=== PATIENT | male | born 1955 | race African-American/Black ===

== ENCOUNTER 2023-12-05 09:35 | Inpatient (IN) | payer MEDICARE ==
[2023-12-05] VITALS (7 sets, daily range): BP systolic 119–127; BP diastolic 64–73; PULSE 109–117; RESP 18–27; TEMP 98.1; O2SAT 100
[~2023-12-05] VITALS: Ht 172.7 cm; Wt 59.0 kg
[2023-12-05] MEDS: SODIUM CHLORIDE 0.9% 1000ML 1,770 ML IV SCH (10:52)
[2023-12-05] MEDS: ONDANSETRON HCL INJ 2MG/ML 2ML 2 MG/ML VIAL IV STA (10:53)
[2023-12-05] MEDS: Morphine 4mg INJECTION 4 MG/ML INJ IV ONE ×2 (10:53→14:38)
[2023-12-05 10:55] LABS: BASOPHILS # (AUTO) 0.1 (0.0-0.1); BASOPHILS % 0.4 % (0.0-1.0); EOSINOPHILS # (AUTO) 0.9 (0.0-0.4); EOSINOPHILS % 3.4 % (0.0-6.0); HEMATOCRIT 30.7 % (38.2-49.6); HEMOGLOBIN 9.8 g/dL (14.0-18.0); LYMPHOCYTES # (AUTO) 1.1 (1.0-3.2); LYMPHOCYTES % 4.1 % (18.0-39.1); MEAN CORPUSCULAR HGB CONC 31.9 g/dL (31-35); MEAN CORPUSCULAR VOLUME 90.8 fL (81-99); MONOCYTES # (AUTO) 2.1 (0.2-0.8); MONOCYTES % 7.6 % (4.4-11.3); NEUTROPHILS # (AUTO) 23.2 (2.1-6.9); NEUTROPHILS % 83.7 % (38.7-80.0); PLATELET COUNT 210 x10e3/uL (140-360); RED BLOOD COUNT 3.38 x10e6/uL (4.3-5.7); RED CELL DISTRIBUTION WIDTH 16.7 % (11.7-14.4); WHITE BLOOD COUNT 27.72 x10e3/uL (4.8-10.8)
[2023-12-05 11:05] LABS: INR 1.68; PARTIAL THROMBOPLASTIN TIME 29.6 seconds (23.8-35.5)
[2023-12-05 11:12] LABS: ALBUMIN 2.8 g/dL (3.5-5.0); ALBUMIN/GLOBULIN RATIO 0.5 (0.8-2.0); ANION GAP 20.3 mmol/L (8-16); BILIRUBIN,TOTAL 0.4 mg/dL (0.2-1.2); CALCIUM 9.4 mg/dL (8.4-10.2); CREATININE, SERUM 2.53 mg/dL (0.72-1.25); TOTAL PROTEIN 8.1 g/dL (6.5-8.1)
[2023-12-05 11:13] LABS: POTASSIUM 5.3 mmol/L (3.5-5.1)
[2023-12-05] MEDS ORDERED: IOPAMIDOL 370 MG/ML 100 ML INFUS..BTL INJ ONE (11:42)
[2023-12-05] MEDS: Vancomycin IV 1 GM in SODIUM CHLORIDE 0.9% 250ML 250 ML IV SCH (12:10)
[2023-12-05 12:46] LABS: PLATELET ESTIMATE ADEQUATE; PLATELET MORPHOLOGY COMMENT NORMAL
[2023-12-05 12:47] LABS: EOSINOPHILS % (MANUAL) 2 % (0-7); LYMPHOCYTES % (MANUAL) 6 % (19-48); MONOCYTES % (MANUAL) 2 % (3.4-9.0); MYELOCYTES % (MANUAL) 1 % (0-0); NEUTROPHILS % (MANUAL) 89 % (40-74); NUCLEATED RED BLOOD CELLS 0; RBC MORPHOLOGY COMMENT NORMAL
[2023-12-05 13:09] LABS: COLOR,URINE YELLOW (YELLOW)
[2023-12-05 13:10] LABS: BACTERIA,URINE MANY /HPF; BILIRUBIN,URINE NEGATIVE (NEGATIVE); CLARITY,URINE TURBID (CLEAR); EPITHELIAL CELLS,URINE MODERATE /LPF; GLUCOSE, URINE NEGATIVE (NEGATIVE); KETONES,URINE NEGATIVE (NEGATIVE); LEUKOCYTE ESTERASE ,URINE NEGATIVE (NEGATIVE); NITRITE,URINE NEGATIVE (NEGATIVE); PH,URINE 5.5 (5 - 7); PROTEIN,URINE DIPSTICK 2+ (NEGATIVE); RBC,URINE 0-5 /HPF (0-5); URINE UROBILINOGEN 0.2 mg/dL (0.2 - 1)
[2023-12-05] MEDS: ALBUTEROL SULF 0.083% NEB SOLN 3 ML NEB NEB STA (13:46)
[2023-12-05] MEDS: DEXTROSE 50% SYRINGE 50 ML IV STA (14:02)
[2023-12-05] MEDS: SODIUM BICARBONATE 8.4% INJ 50 ML SYR IV STA (14:04)
[2023-12-05] MEDS: INSULIN REGULAR, HUMAN 100 UNIT/1 ML IV ONE (14:13)
[2023-12-05] MEDS: CALCIUM GLUC 1 G/50 ML NACL 100 ML IV ONE (14:13)
[2023-12-05] MEDS ORDERED: SODIUM CHLORIDE FLUSH 10 ML SYR INJ PRN (15:00)
[2023-12-05] MEDS ORDERED: Morphine 4mg INJECTION 4 MG/ML INJ IV PRN (15:00)
[2023-12-05] MEDS ORDERED: ZOLPIDEM TARTRATE 5 MG TAB PO PRN (16:00)
[2023-12-05] MEDS ORDERED: ACETAMINOPHEN 325 MG TAB PO PRN (16:00)
[2023-12-05] MEDS: DEXAMETHASONE SOD PHOS 10 MG/1 ML VIAL IV SCH (16:06)
[2023-12-05] MEDS: SODIUM BICARBONATE 8.4% 50 ML in SODIUM CHLORIDE 0.45% 1,000 ML IV SCH (16:06)
[2023-12-05] MEDS: ENOXAPARIN 30 MG/0.3 ML SYR SC SCH (16:07)
[2023-12-05] MEDS: HEPARIN SOD (PORCINE) 5,000 UNIT/ML VIAL IV ONE (18:07)
[2023-12-05] MEDS: HEPARIN IV SCH (18:24)
[2023-12-05] MEDS: [UNRECOGNIZED DRUG - OTHER] IV SCH (18:24)
[2023-12-05] MEDS: DEXTROSE 5% IV SCH (18:24)
[2023-12-05] MEDS ORDERED: Morphine 2mg Syringe 2 MG/ML SYR IV PRN (19:00)
[2023-12-05] MEDS: Morphine 2mg Syringe 2 MG/ML SYR IV PRN (21:29)
[2023-12-06] VITALS (26 sets, daily range): BP systolic 115–140; BP diastolic 67–77; PULSE 95–111; RESP 14–22; TEMP 97.6–98.2; O2SAT 99–100
[2023-12-06] MEDS ORDERED: SODIUM CHLORIDE 0.45% 1,000 ML ONE (03:35)
[2023-12-06 07:47] LABS: ALBUMIN/GLOBULIN RATIO 0.5 (0.8-2.0); ANION GAP 15.2 mmol/L (8-16); BILIRUBIN,TOTAL 0.3 mg/dL (0.2-1.2); CREATININE, SERUM 1.97 mg/dL (0.72-1.25); TOTAL PROTEIN 6.1 g/dL (6.5-8.1)
[2023-12-06 07:49] LABS: POTASSIUM 5.2 mmol/L (3.5-5.1)
[2023-12-06 07:57] LABS: BASOPHILS % 0.1 % (0.0-1.0); EOSINOPHILS % 0.2 % (0.0-6.0); HEMOGLOBIN 7.4 g/dL (14.0-18.0); LYMPHOCYTES # (AUTO) 0.8 (1.0-3.2); LYMPHOCYTES % 3.6 % (18.0-39.1); MEAN CORPUSCULAR HEMOGLOBIN 28.6 pg (28-32); MEAN CORPUSCULAR HGB CONC 32.2 g/dL (31-35); MEAN CORPUSCULAR VOLUME 88.8 fL (81-99); MONOCYTES % 4.6 % (4.4-11.3); NEUTROPHILS # (AUTO) 19.2 (2.1-6.9); NEUTROPHILS % 90.8 % (38.7-80.0); PLATELET COUNT 221 x10e3/uL (140-360); RED BLOOD COUNT 2.59 x10e6/uL (4.3-5.7); RED CELL DISTRIBUTION WIDTH 16.7 % (11.7-14.4); WHITE BLOOD COUNT 21.17 x10e3/uL (4.8-10.8)
[2023-12-06 08:11] LABS: MAGNESIUM 1.9 MG/DL (1.3-2.1); PHOSPHORUS 4.7 MG/DL (2.3-4.7)
[2023-12-06] MEDS: ONDANSETRON HCL INJ 2MG/ML 2ML 2 MG/ML VIAL IV PRN (08:12)
[2023-12-06 08:27] LABS: TROPONIN I 0.031 ng/mL (0-0.300)
[2023-12-06] MEDS: HYDROCODONE/APAP 10MG-325MG TAB PO PRN (09:17)
[2023-12-06] MEDS: EPOETIN ALFA-EPBX 10,000 UNIT/ML VIAL SC SCH (14:10)
[2023-12-06] MEDS: SOD POLYSTYRENE SULFONATE SUSP 15 GM/60 ML BTL PO ONE ×2 (16:18)
[2023-12-06] MEDS: APIXABAN 5 MG TABLET PO SCH (16:53)
[2023-12-06] MEDS: SODIUM BICARBONATE 8.4% SYRING 50 ML ONE (19:57)
[2023-12-07] VITALS (24 sets, daily range): BP systolic 127–165; BP diastolic 68–88; PULSE 90–104; RESP 11–30; TEMP 97.3–98.2; O2SAT 97–100
[2023-12-07 06:41] LABS: BASOPHILS % 0.1 % (0.0-1.0); EOSINOPHILS # (AUTO) 0.1 (0.0-0.4); EOSINOPHILS % 0.4 % (0.0-6.0); HEMATOCRIT 24.5 % (38.2-49.6); HEMOGLOBIN 7.4 g/dL (14.0-18.0); LYMPHOCYTES # (AUTO) 0.8 (1.0-3.2); LYMPHOCYTES % 3.3 % (18.0-39.1); MEAN CORPUSCULAR HEMOGLOBIN 28.2 pg (28-32); MEAN CORPUSCULAR HGB CONC 30.2 g/dL (31-35); MEAN CORPUSCULAR VOLUME 93.5 fL (81-99); MONOCYTES # (AUTO) 0.9 (0.2-0.8); MONOCYTES % 3.4 % (4.4-11.3); NEUTROPHILS # (AUTO) 22.5 (2.1-6.9); NEUTROPHILS % 91.1 % (38.7-80.0); PLATELET COUNT 250 x10e3/uL (140-360); RED BLOOD COUNT 2.62 x10e6/uL (4.3-5.7); RED CELL DISTRIBUTION WIDTH 16.6 % (11.7-14.4); WHITE BLOOD COUNT 24.74 x10e3/uL (4.8-10.8)
[2023-12-07 07:00] LABS: ALBUMIN/GLOBULIN RATIO 0.5 (0.8-2.0); BILIRUBIN,TOTAL 0.3 mg/dL (0.2-1.2); CALCIUM 7.9 mg/dL (8.4-10.2); CREATININE, SERUM 1.8 mg/dL (0.72-1.25); TOTAL PROTEIN 5.9 g/dL (6.5-8.1)
[2023-12-07] MEDS: PANTOPRAZOLE SOD 40 MG TABEC PO SCH (09:35)
[2023-12-07 11:14] LABS: EOSINOPHILS % (MANUAL) 1 % (0-7); LYMPHOCYTES % (MANUAL) 2 % (19-48); MONOCYTES % (MANUAL) 8 % (3.4-9.0); NEUTROPHILS % (MANUAL) 89 % (40-74); PLATELET ESTIMATE ADEQUATE; PLATELET MORPHOLOGY COMMENT NORMAL; RBC MORPHOLOGY COMMENT NORMAL
[2023-12-08] VITALS (10 sets, daily range): BP systolic 130–165; BP diastolic 65–94; PULSE 95–112; RESP 16–19; TEMP 97.3–98.4; O2SAT 95–100
[2023-12-08] MEDS ORDERED: PIPERACILLIN/TAZOBACTAM 3.375 GM VIAL ONE (05:04)
[2023-12-08 07:24] LABS: ANION GAP 14.8 mmol/L (8-16); CALCIUM 8.1 mg/dL (8.4-10.2); CREATININE, SERUM 1.81 mg/dL (0.72-1.25); POTASSIUM 4.8 mmol/L (3.5-5.1)
[2023-12-08 10:05] LABS: ANION GAP 19.7 mmol/L (8-16); BASOPHILS # (AUTO) 0.1 (0.0-0.1); BASOPHILS % 0.2 % (0.0-1.0); CALCIUM 8.4 mg/dL (8.4-10.2); CREATININE, SERUM 1.86 mg/dL (0.72-1.25); EOSINOPHILS # (AUTO) 0.6 (0.0-0.4); EOSINOPHILS % 1.8 % (0.0-6.0); HEMATOCRIT 27.2 % (38.2-49.6); HEMOGLOBIN 8.6 g/dL (14.0-18.0); LYMPHOCYTES # (AUTO) 1.3 (1.0-3.2); MEAN CORPUSCULAR HEMOGLOBIN 28.6 pg (28-32); MEAN CORPUSCULAR HGB CONC 31.6 g/dL (31-35); MONOCYTES # (AUTO) 1.8 (0.2-0.8); MONOCYTES % 5.5 % (4.4-11.3); NEUTROPHILS # (AUTO) 28.3 (2.1-6.9); NEUTROPHILS % 86.1 % (38.7-80.0); PLATELET COUNT 303 x10e3/uL (140-360); POTASSIUM 4.7 mmol/L (3.5-5.1); RED BLOOD COUNT 3.01 x10e6/uL (4.3-5.7); RED CELL DISTRIBUTION WIDTH 16.6 % (11.7-14.4); WHITE BLOOD COUNT 32.88 x10e3/uL (4.8-10.8)
[2023-12-08 10:10] LABS: MEAN CORPUSCULAR VOLUME 90.4 fL (81-99)
[2023-12-08] MEDS ORDERED: MAGNESIUM HYDROXIDE 30 ML UDC PO PRN (10:15)
[2023-12-08] MEDS: SENNA-S TABLET PO SCH (10:15)
[2023-12-08 11:31] LABS: BAND NEUTROPHILS % (MANUAL) 2 %; EOSINOPHILS % (MANUAL) 4 % (0-7); LYMPHOCYTES % (MANUAL) 1 % (19-48); MONOCYTES % (MANUAL) 4 % (3.4-9.0); NEUTROPHILS % (MANUAL) 89 % (40-74)
[2023-12-08 11:32] LABS: PLATELET ESTIMATE ADEQUATE; PLATELET MORPHOLOGY COMMENT NORMAL; RBC MORPHOLOGY COMMENT NORMAL
[2023-12-09 03:09] VITALS: BP 152/90; PULSE 99; RESP 18; TEMP 97.9; O2SAT 97
[2023-12-09 05:46] LABS: BASOPHILS % 0.1 % (0.0-1.0); EOSINOPHILS # (AUTO) 0.7 (0.0-0.4); EOSINOPHILS % 2.4 % (0.0-6.0); HEMATOCRIT 27.3 % (38.2-49.6); HEMOGLOBIN 8.3 g/dL (14.0-18.0); LYMPHOCYTES # (AUTO) 1.2 (1.0-3.2); MEAN CORPUSCULAR HEMOGLOBIN 28.2 pg (28-32); MEAN CORPUSCULAR HGB CONC 30.4 g/dL (31-35); MEAN CORPUSCULAR VOLUME 92.9 fL (81-99); MONOCYTES # (AUTO) 1.7 (0.2-0.8); MONOCYTES % 5.4 % (4.4-11.3); NEUTROPHILS # (AUTO) 26.7 (2.1-6.9); NEUTROPHILS % 86.3 % (38.7-80.0); PLATELET COUNT 304 x10e3/uL (140-360); RED BLOOD COUNT 2.94 x10e6/uL (4.3-5.7); RED CELL DISTRIBUTION WIDTH 16.4 % (11.7-14.4); WHITE BLOOD COUNT 30.91 x10e3/uL (4.8-10.8)
[2023-12-09 06:21] LABS: ANION GAP 16.6 mmol/L (8-16); CALCIUM 8.5 mg/dL (8.4-10.2); CREATININE, SERUM 2.07 mg/dL (0.72-1.25); POTASSIUM 4.6 mmol/L (3.5-5.1)
[2023-12-09 08:22] VITALS: BP 158/93; PULSE 98; RESP 16; TEMP 98; O2SAT 100
[2023-12-09 08:37] VITALS: BP 158/93; PULSE 98; RESP 16; TEMP 98; O2SAT 100
[2023-12-09 11:22] VITALS: BP 166/88; PULSE 108; RESP 16; TEMP 97.9; O2SAT 99
[2023-12-09 11:55] LABS: BAND NEUTROPHILS % (MANUAL) 7 %; EOSINOPHILS % (MANUAL) 1 % (0-7); LYMPHOCYTES % (MANUAL) 2 % (19-48); MONOCYTES % (MANUAL) 5 % (3.4-9.0); NEUTROPHILS % (MANUAL) 85 % (40-74)
[2023-12-09 11:56] LABS: HYPOCHROMASIA SLIGHT; PLATELET ESTIMATE ADEQUATE; PLATELET MORPHOLOGY COMMENT NORMAL; RBC MORPHOLOGY COMMENT NORMAL
== END 2023-12-09 14:28 | disposition hospice, home (50) | DRG 871 ==
LOC: ER 09:41 → ERHOLD 14:50 → ICU 21:01 → MED/SURG3 12-07 17:47
PROVIDERS: ADMIT Internal Medicine; ATTEND Internal Medicine
DX: A41.89 Other specified sepsis (principal); G92.8 Other toxic encephalopathy; G93.41 Metabolic encephalopathy; U07.1 COVID-19; J18.1 Lobar pneumonia, unspecified organism; N17.9 Acute kidney failure, unspecified; C78.89 Secondary malignant neoplasm of other digestive organs; N39.0 Urinary tract infection, site not specified; E87.20 Acidosis, unspecified; C34.90 Malignant neoplasm of unspecified part of unspecified bronchus or lung; C78.7 Secondary malignant neoplasm of liver and intrahepatic bile duct; C79.70 Secondary malignant neoplasm of unspecified adrenal gland; C79.00 Secondary malignant neoplasm of unspecified kidney and renal pelvis; I24.0 Acute coronary thrombosis not resulting in myocardial infarction; R65.20 Severe sepsis without septic shock; E78.5 Hyperlipidemia, unspecified; E87.5 Hyperkalemia; G89.3 Neoplasm related pain (acute) (chronic); E86.0 Dehydration; Z66 Do not resuscitate; D63.8 Anemia in other chronic diseases classified elsewhere; Z87.891 Personal history of nicotine dependence; G89.4 Chronic pain syndrome; I13.10 Hypertensive heart and chronic kidney disease without heart failure, with stage 1 through stage 4 chronic kidney disease, or unspecified chronic kidney disease; E11.22 Type 2 diabetes mellitus with diabetic chronic kidney disease; N18.30 Chronic kidney disease, stage 3 unspecified
CPT/HCPCS: 36415; 51700; 71045; 74176; 76770; 80048; 80053; 81001; 82550; 82948; 83605; 83735; 84100; 84295; 84484; 85025; 85610; 85730; 87040; 87086; 87400; 93005; 93308; 94799; 99284; J1100; J1644; J1650; J2270; J2405; J2543; J7030; J7050; J7799; Q9967; U0002